=== PATIENT | male | born 1960 | race Asian ===

== ENCOUNTER 2019-07-21 05:48 | Day surgery (SDC) | payer OTHER ==
[2019-07-21] VITALS (12 sets, daily range): BP systolic 96–118; BP diastolic 65–78
[~2019-07-21] VITALS: Ht 182.9 cm; Wt 88.5 kg
[~2019-07-21 05:48] MED LIST: ASPIRIN81 MG ORAL; ATORVASTATIN CA80 MG ORAL; CARISOPRODOL350 MG ORAL; ESGIC 50-325-41 EACH PO; METFORMIN HCL500 M1 ORAL; MIRALAX17 GM ORAL; NORVASC10 MG ORAL; OXYCONTIN10 MG ORAL
[2019-07-21] MEDS ORDERED: celeBREX 200mg Cap **SURGERY PATIENTS ONLY ORAL ONE (06:00)
[2019-07-21] MEDS ORDERED: oxyCONTIN 20mg tab ORAL ONE (06:00)
[2019-07-21] MEDS ORDERED: ceFAZolin 1gm IVPB IVPB ONE ×2 (06:00)
[2019-07-21] MEDS ORDERED: Sterile Water Irrig 1000ml IRRIG ONE (07:00)
[2019-07-21] MEDS ORDERED: LR 1000ml ONE (07:00)
[2019-07-21] MEDS ORDERED: Bupivacaine 0.25% Inj 30ml INJ ONE (07:02)
[2019-07-21] MEDS ORDERED: Lidocaine 1% 10mg/ml/Epi 0.005mg/ml 30ml vial INJ ONE (07:02)
[2019-07-21] MEDS ORDERED: Kenalog-40 1ml Vial ONE (07:02)
[2019-07-21] MEDS ORDERED: Duramorph PF 5mg/10ml amp ONE (07:02)
[2019-07-21] MEDS ORDERED: Ketorolac 30mg Inj ONE (07:02)
[2019-07-21] MEDS ORDERED: LR 1000ml 1,000 ML IVLG SCH (07:04)
--- NOTE | 2019-07-21 07:04 | Anethesia Preoperative Eval ---
Anesthesia Pre-op PMH/ROS General Date of Evaluation: Jul 21, 2019 Anesthesiologist: César ASA Score: ASA 3 Mallampati Score Class I : Soft palate, uvula, fauces, pillars visible Class II: Soft palate, uvula, fauces visible Class III: Soft palate, base of uvula visible Class IV: Only hard plate visible Mallampati Classification: Class III Surgeon: Jeyson Diagnosis: Left knee pain Surgical Procedure: Left knee arthroscopy Anesthesia History: none Family History: no anesthesia problems Allergies: Coded Allergies: No Known Allergies (Unverified , 03/15/19) Medications: see eMAR Patient NPO?: Yes NPO Date: Jul 21, 2019 NPO Time: 00:00 Past Medical History Cardiovascular: Reports: HTN, CAD - s/p stent x1 Endocrine: Reports: DM Other: obesity PSxH Narrative: ACDF, right hand sx, t&A Anesthesia Pre-op Phys. Exam Physician Exam Last Vital Signs Date Time Temp Pulse Resp B/P (MAP) Pulse Ox O2 Delivery O2 Flow Rate FiO2 07/21/19 06:23 Room Air 07/21/19 06:19 97.8 73 18 109/78 95 Constitutional: NAD Cardiovascular: RRR Respiratory: CTA Airway Exam Mallampati Score: Class III MO: limited ROM: limited Anesthesia Pre-op A/P Labs see chart Studies Pre-op Studies: EKG - sr Risk Assessment & Plan Assessment: ASA III Plan: GA Status Change Before Surgery: No Pre-Antibiotics Drug: Ancef 2g Given Within 1 Hr of Incision: Yes Evi Rojas MD Jul 21, 2019 07:04
[2019-07-21] MEDS ORDERED: NS Irrig 4000ml IRRIG ONE ×2 (07:14→07:30)
[2019-07-21] MEDS ORDERED: Ketorolac 30mg Inj IV PRN (07:15)
[2019-07-21] MEDS ORDERED: Metoclopramide 10mg/2ml Inj IVP PRN (07:15)
[2019-07-21] MEDS ORDERED: fentaNYL 100 mcg/2 mL IV PRN (07:15)
[2019-07-21] MEDS ORDERED: Hydromorphone 0.5mg/0.5ml inj IVP PRN (07:15)
[2019-07-21] MEDS ORDERED: Midazolam 2mg/2ml Inj IVP PRN (07:15)
[2019-07-21] MEDS ORDERED: DiphenhydrAMINE 50mg/ml Inj IVP PRN (07:15)
[2019-07-21] MEDS ORDERED: LORazepam Inj 2mg/ml 1ml IV PRN (07:15)
[2019-07-21] MEDS ORDERED: Duramorph PF 5mg/10ml amp IT ONE ×2 (07:16→07:55)
[2019-07-21] MEDS ORDERED: Lidocaine 1% MPF 10mg/ml 5ml ONE (07:24)
[2019-07-21] MEDS ORDERED: Propofol 200mg/20ml IV ONE (07:24)
--- NOTE | 2019-07-21 07:27 | Pre-Procedure Note/Attestation ---
Pre-Procedure Note/Attestation Complete Prior to Procedure Planned Procedure: left Procedure Narrative: knee arthroscopy, menisectomy Indications for Procedure Pre-Operative Diagnosis: left knee meniscus tear Attestation I attest that I discussed the nature of the procedure; its benefits; risks and complications; and alternatives (and the risks and benefits of such alternatives ), prior to the procedure, with the patient (or the patient's legal title insurance sales representative). I attest that, if there was a reasonable possibility of needing a blood transfusion, the patient (or the patient's legal title insurance sales representative) was given the [facility] standardized written summary, pursuant to the Melvin Mcnab Blood Safety Act ([place] Health and Safety Code # 1645, as amended). I attest that I re-evaluated the patient just prior to the surgery and that there has been no change in the patient's H&P, except as documented below: Samuel Benítez MD Jul 21, 2019 07:27
--- NOTE | 2019-07-21 07:27 | Operative Note - PDOC ---
Operative Note Operative Note Pre-op Diagnosis: left knee meniscus tear Procedure: see op report Post-op Diagnosis: same as pre-op plus Operative Findings: consistent w/pre-op dx studies Anesthesia: MAC Specimen: none Complications: none Condition: stable Estimated Blood Loss: none Implant(s) used?: No Samuel Benítez MD Jul 21, 2019 07:27
--- NOTE | 2019-07-21 08:11 | Immediate Post-Op Evaluation ---
Immediate Post-Op Evalulation Immediate Post-Op Evalulation Procedure: Lef tknee arthrosocpy Date of Evaluation: Jul 21, 2019 Time of Evaluation: 08:13 IV Fluids: 500 Blood Products: 0 Estimated Blood Loss: min Urinary Output: 0 Blood Pressure Systolic: 102 Blood Pressure Diastolic: 69 Pulse Rate: 68 Respiratory Rate: 16 O2 Sat by Pulse Oximetry: 98 Temperature (Fahrenheit): 97.2 Pain Score (1-10): 0 Nausea: No Vomiting: No Complications 0 Patient Status: awake, reacts, patent, none Hydration Status: adequate Drug: Ancef 2g Given Within 1 Hr of Incision: Yes Evi Rojas MD Jul 21, 2019 08:11
--- NOTE | 2019-07-21 08:11 | 48 Hour Post Anesthesia Eval ---
Post Anesthesia Evaluation Procedure: Lef tknee arthrosocpy Date of Evaluation: Jul 21, 2019 Airway: patent Nausea: No Vomiting: No Pain Intensity: 0 Hydration Status: adequate [facility] Status[facility]LOC: patient returned to baseline Post-Anesthesia Complications: 0 Follow-up care needed: ready to discharge Evi Rojas MD Jul 21, 2019 08:11
[2019-07-21] MEDS ORDERED: Tylenol #3 tab (300mg/30mg) ORAL PRN (09:30)
[2019-07-21] MEDS ORDERED: HYDROcodone/Acetamin 5/325 tab ORAL PRN (09:30)
[2019-07-21] MEDS ORDERED: D5 1/2NS 1,000 ML IV SCH (09:30)
[2019-07-21] MEDS ORDERED: HYDROmorphone 1mg/ml Carpuject SUBQ PRN (09:30)
--- NOTE | 2019-07-21 10:45 | Operative Note - Dictated ---
DATE OF OPERATION: 07/21/2019 PREOPERATIVE DIAGNOSES: 1. Left knee patellofemoral chondral damage. 2. Possible internal derangement of the meniscal versus hypertrophic fat pad syndrome. POSTOPERATIVE DIAGNOSES: 1. Grade 2 chondral damage, lateral patellar facet. 2. Hypertrophic synovial tissue/fat pad. PROCEDURE: 1. Left knee diagnostic arthroscopy and synovectomy of the medial, lateral, and patellofemoral compartment. 2. Gentle chondroplasty of lateral patellar facet. SURGEON: Samuel Benítez M.D. ANESTHESIA: General. INDICATION FOR PROCEDURE: The patient is a pleasant 58-year-old gentleman, who has had progressive left knee pain. The patient ultimately had continued pain despite conservative treatment and elected to undergo left knee diagnostic arthroscopy, possible synovectomy, chondroplasty. Risks, limitations, expectations, complication of the procedure were discussed in detail. All questions addressed. DESCRIPTION OF PROCEDURE: After informed consent was obtained, the patient was brought to the operating room. The patient was placed under monitored anesthesia control. Left leg was prepped and draped in a sterile manner. Time-out was performed. Inferolateral stab incision was then made. Trocar was introduced into the knee joint. There was hypertrophic synovial tissue in the patellofemoral compartment. Medial gutter was entered and free of loose bodies. Medial compartment was entered. The meniscus and the cartilage was probed. There was hypertrophic fat pad, synovial tissue making visualization somewhat difficult. He was then placed through a medial working portal. Incision of the fat pad and synovial tissue, the anterior portion of the medial compartment was performed extending intercondylar notch and lateral compartment. The ACL was probed, noted to be intact. Lateral compartment was entered, free from the meniscal chondral damage. Camera was repositioned in the patellofemoral compartment. Excision of the fat pad was completed. Once this was done, lateral patellar facet was identified. There was an area measured 4 x 4 mm lateral patellar facet. Gentle chondroplasty was performed. Once this was done, the instruments were removed. Portal sites were closed with 3-0 Monocryl sutures. Steri-Strips and a sterile dressing were applied. ESTIMATED BLOOD LOSS: None. COMPLICATIONS: None. SPECIMENS: None. IMPLANTS: None. Samuel Benítez M.D. DR: BHAVANA JOB#: [id number] CC:
== END 2019-07-21 09:30 | disposition home or self-care (01) ==
LOC: SUR 05:48
DX: M67.262 Synovial hypertrophy, not elsewhere classified, left lower leg (principal); I11.9 Hypertensive heart disease without heart failure; Z95.5 Presence of coronary angioplasty implant and graft; E11.9 Type 2 diabetes mellitus without complications; E66.9 Obesity, unspecified; Z98.1 Arthrodesis status; Z68.26 Body mass index [BMI] 26.0-26.9, adult
CPT/HCPCS: 29876; J0690; J1885; J2250; J2704; J3010; J3301; J3490; J7120; 94003; 94150